=== PATIENT | female | born 1970 | race Caucasian/White ===

== ENCOUNTER 2017-12-23 17:05 | Emergency (ER) | payer SELFPAY ==
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
[2017-12-23 20:10] VITALS: BP 127/82; TEMP 97.7
[2017-12-23 20:11] VITALS: O2SAT 98
== END 2017-12-23 19:36 | disposition home or self-care (01) ==
LOC: ER 17:05
DX: M79.605 Pain in left leg (principal); V49.49XA Driver injured in collision with other motor vehicles in traffic accident, initial encounter; F17.210 Nicotine dependence, cigarettes, uncomplicated; Z88.0 Allergy status to penicillin
CPT/HCPCS: 99284